=== PATIENT | female | born 1960 | race Asian ===

== ENCOUNTER 2021-02-18 12:14 | Inpatient (IN) | payer MEDICAID ==
[~2021-02-18] VITALS: Ht 152.4 cm; Wt 58.0 kg
[2021-02-18 13:53] LABS: EOSINOPHILS % (AUTO) 0 % (0-6); HEMOGLOBIN 15.3 g/dl (12.0-16.0); LYMPHOCYTES # (AUTO) 1.4 X10'3 (1.1-4.8); MONOCYTES # (AUTO) 0.2 X10'3 (0-0.9); NEUTROPHILS # (AUTO) 8.9 X10'3 (1.8-7.7); WHITE BLOOD COUNT 10.5 X10'3 (4.5-11.0)
[2021-02-18 13:54] LABS: BASOPHILS % (AUTO) 0.3 % (0-1); HEMATOCRIT 46.2 % (35.0-45.0); LYMPHOCYTES % (AUTO) 13.3 % (21-51); MEAN CORPUSCULAR HEMOGLOBIN 27.2 PG (27.0-31.0); MEAN CORPUSCULAR HGB CONC 33.2 g/dL (33.0-36.5); MEAN CORPUSCULAR VOLUME 81.7 FL (78-98); MEAN PLATELET VOLUME 8.2 FL (7.4-10.4); MONOCYTES % (AUTO) 1.8 % (2-12); NEUTROPHILS % (AUTO) 84.6 % (42-75); PLATELET COUNT 309 X10'3 (140-440); RED BLOOD COUNT 5.65 X10'6 (4.20-5.60)
[2021-02-18] MEDS ORDERED: LISI1TAB32 PO (14:28)
[2021-02-18 14:41] LABS: ALBUMIN 4.2 G/DL (3.4-5.0); ANION GAP 17 (8-16); BLOOD UREA NITROGEN 15 MG/DL (7-18); BUN/CREATININE RATIO 23.8 (6.6-38.0); CALCIUM 9.7 MG/DL (8.5-10.1); CHLORIDE 99 MMOL/L (99-107); CREATININE 0.63 MG/DL (0.40-0.90); GLUCOSE 204 MG/DL (70-104); SODIUM 138 MMOL/L (135-145); TOTAL CARBON DIOXIDE 22.5 MMOL/L (24-32); eGFR > 90 ML/MIN
[2021-02-18 14:42] LABS: POTASSIUM 4.2 MMOL/L (3.5-5.1)
[2021-02-18] MEDS ORDERED: iohexol 300mg/ml 100ml inj. ONE (14:55)
--- NOTE | 2021-02-18 15:00 | NUR ---
TO CT VIA [facility]
[2021-02-18] MEDS ORDERED: NO HOME MEDS (16:02)
[2021-02-18] MEDS ORDERED: labetalol 20mg/4ml (5mg/ml) syringe IV ONE ×2 (16:05→17:40)
[2021-02-18] MEDS ORDERED: amLODIPine 5mg tablet PO ONE (16:05)
[2021-02-18] MEDS ORDERED: normal saline 1000ML IV soln IVB ONE (16:05)
--- NOTE | 2021-02-18 16:15 | NUR ---
YASIR WALLACE [phone] CALL WHEN DC
--- NOTE | 2021-02-18 17:42 | NUR ---
to gi lab
[2021-02-18 17:50] VITALS: BP 230/114
[2021-02-18] MEDS ORDERED: MIDAZolam 1 MG/ML 5ML VIAL ONE (17:50)
[2021-02-18] MEDS ORDERED: LIDOcaine Viscous 15ml cup ONE (17:50)
[2021-02-18] MEDS ORDERED: fentaNYL/PF 50MCG/1 ML 2ML syringe ONE (17:50)
[2021-02-18 18:30] VITALS: BP 157/90
[2021-02-18 18:40] VITALS: BP 156/81
[2021-02-18 18:50] VITALS: BP 162/80
[2021-02-18 19:00] VITALS: BP 152/84
[2021-02-18] MEDS ORDERED: diphenhydrAMINE 50 mg/ml inj IV ONE (20:00)
[2021-02-18] MEDS ORDERED: temazepam 15mg capsule PO PRN (21:00)
[2021-02-18] MEDS ORDERED: mag hydrox/Alum hydrox/simeth 30ml oral suspension PO PRN (23:30)
[2021-02-18] MEDS ORDERED: ondansetron/PF 4mg/2ml inj IV PRN (23:30)
[2021-02-18] MEDS ORDERED: diphenhydrAMINE 50 mg/ml inj IV PRN (23:30)
[2021-02-18] MEDS ORDERED: acetaminophen 650mg rectal suppository RC PRN (23:30)
[2021-02-18] MEDS ORDERED: ondansetron 4mg rapidly disintigrating tab PO PRN (23:30)
[2021-02-18] MEDS ORDERED: diphenhydrAMINE 25mg capsule PO PRN (23:30)
[2021-02-18] MEDS ORDERED: magnesium hydroxide 30ml (MOM) UD suspension PO PRN (23:30)
[2021-02-18] MEDS ORDERED: acetaminophen 325mg tablet PO PRN ×2 (23:30)
[2021-02-18] MEDS ORDERED: dextrose 5%-1/2 normal saline 1,000 ML IV SCH (23:30)
[2021-02-18] MEDS ORDERED: morphine 2 MG/ML inj. syringe IV PRN ×2 (23:30)
[2021-02-18] MEDS ORDERED: HYDROcodone/acetaminophen 5mg/325mg tablet PO PRN (23:30)
[2021-02-18] MEDS ORDERED: bisacodyl 10mg suppository rectal RC PRN (23:30)
[2021-02-19 00:02] LABS: HEMOGLOBIN A1C 8.2 % (4.5-6.2)
[2021-02-19 00:18] LABS: LIPASE 63 U/L (73-393); MAGNESIUM 2.1 MG/DL (1.5-2.4); PHOSPHORUS 4.1 MG/DL (2.3-4.5)
[2021-02-19] MEDS: hydrALAZINE 20mg/ml inj. IV PRN ×2 (03:10→10:05)
[2021-02-19 03:37] LABS: BASOPHILS % (AUTO) 0.2 % (0-1); EOSINOPHILS # (AUTO) 0.1 X10'3 (0-0.9); EOSINOPHILS % (AUTO) 0.9 % (0-6); HEMOGLOBIN 14.1 g/dl (12.0-16.0); LYMPHOCYTES # (AUTO) 2.8 X10'3 (1.1-4.8); LYMPHOCYTES % (AUTO) 29.7 % (21-51); MEAN CORPUSCULAR HEMOGLOBIN 26.9 PG (27.0-31.0); MEAN CORPUSCULAR HGB CONC 33.6 g/dL (33.0-36.5); MEAN CORPUSCULAR VOLUME 80.1 FL (78-98); MEAN PLATELET VOLUME 7.8 FL (7.4-10.4); MONOCYTES # (AUTO) 0.6 X10'3 (0-0.9); MONOCYTES % (AUTO) 6.8 % (2-12); NEUTROPHILS # (AUTO) 5.9 X10'3 (1.8-7.7); NEUTROPHILS % (AUTO) 62.4 % (42-75); PLATELET COUNT 275 X10'3 (140-440); RED BLOOD COUNT 5.24 X10'6 (4.20-5.60); RED CELL DISTRIBUTION WIDTH 13.7 % (11.5-14.5); WHITE BLOOD COUNT 9.5 X10'3 (4.5-11.0)
[2021-02-19 03:51] LABS: PARTIAL THROMBOPLASTIN TIME 24 SECONDS (22-32)
[2021-02-19 03:59] LABS: ALANINE AMINOTRANSFERASE 31 U/L (12-78); ALBUMIN 3.6 G/DL (3.4-5.0); ALBUMIN/GLOBULIN RATIO 0.9 (1.1-1.5); ALKALINE PHOSPHATASE 136 IU/L (46-116); ANION GAP 8 (8-16); ASPARTATE AMINO TRANSFERASE 16 U/L (10-37); BILIRUBIN,TOTAL 0.3 MG/DL (0.1-1.0); BLOOD UREA NITROGEN 14 MG/DL (7-18); BUN/CREATININE RATIO 18.4 (6.6-38.0); CALCIUM 8.7 MG/DL (8.5-10.1); CHLORIDE 108 MMOL/L (99-107); CHOL/HDL RATIO 4.3 (0.00-4.99); CHOLESTEROL 341 MG/DL (0-200); CREATININE 0.76 MG/DL (0.40-0.90); GLUCOSE 181 MG/DL (70-104); HDL CHOLESTEROL 79 MG/DL (35-60); LDL CHOLESTEROL 212 MG/DL (50-100); POTASSIUM 3.4 MMOL/L (3.5-5.1); SODIUM 144 MMOL/L (135-145); TOTAL CARBON DIOXIDE 27.9 MMOL/L (24-32); TOTAL PROTEIN 7.7 G/DL (6.4-8.2); TRIGLYCERIDES 180 MG/DL (20-135); eGFR 78 ML/MIN
[2021-02-19] MEDS ORDERED: niCARdipine I.V. 50 MG in normal saline 250ml IV soln 230 ML IV SCH (04:25)
[2021-02-19] MEDS: niCARDipine-NS 40mg/200ml IVPB 200 ML IV SCH ×2 (04:31→12:30)
[2021-02-19] MEDS ORDERED: glucagon, human recombinant 1mg kit SUBCUT PRN (05:00)
[2021-02-19] MEDS ORDERED: insulin Lispro (HumaLOG) vial - multi-dose SQ SCH (05:00)
[2021-02-19] MEDS ORDERED: potassium Cl 20 mEq SR tablet PO PRN ×2 (05:00)
[2021-02-19] MEDS ORDERED: magnesium Cl slow-release 64mg tablet PO PRN (05:00)
[2021-02-19] MEDS ORDERED: dextrose ORAL solution 15 GM/59 ML bottle PO PRN ×2 (05:00)
[2021-02-19] MEDS ORDERED: dextrose 50%-water 50ml dispensing syringe IV PRN ×2 (05:00)
[2021-02-19] MEDS ORDERED: magnesium 4gm in 100ml NS 100 ML IV PRN (05:00)
[2021-02-19] MEDS ORDERED: potassium Cl 40MEQ/1/2NS 520ml 520 ML IV PRN (05:00)
[2021-02-19] MEDS ORDERED: MESSAGE TO PHARMACY PO ONE (05:00)
--- NOTE | 2021-02-19 07:03 | NUR ---
PT AMBUATED TO BATHROOM NO ASSISTANCE NEEDED, STEADY GAIT
[2021-02-19] MEDS ORDERED: pantoprazole 40mg Tablet.DR PO SCH (07:30)
--- NOTE | 2021-02-19 07:36 | NUR ---
pt refused to swallow pills.
[2021-02-19] MEDS: K and/or MAG REPLACEMENT MC SCH ×2 (08:00→19:57)
[2021-02-19] MEDS ORDERED: atorvastatin 20mg tablet PO SCH (08:00)
[2021-02-19] MEDS ORDERED: docusate sod 100mg capsule PO SCH (08:00)
[2021-02-19] MEDS ORDERED: amox tr/potassium clavulanate 500mg/125mg TAB PO SCH (08:30)
--- NOTE | 2021-02-19 08:43 | NUR ---
pt able to swallow some broth without distress.
--- NOTE | 2021-02-19 09:59 | NUR ---
BACK FROM MRI
[2021-02-19] MEDS: heparin, porcine 5000 units/ml vial SQ SCH ×2 (10:06→19:57)
[2021-02-19] MEDS: aspirin 300mg supp.rect RC SCH (12:29)
--- NOTE | 2021-02-19 14:02 | NUR ---
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 TF recs below given pt needs using IBW as pending scaled wt this admit; will monitor for TF adjustment needs once scaled wt this admit. Noted A1C 8.2 w/ Glu 287mg/dl and no hx DM; UTE d/w RN who reports new DM DX this admit as well pt not previously aware. Lipid panel elevated TG 180, Chol 341, LDL 212 on admit as well. Pt would benefit from HH/DM eds once provided official DM DX by DO and if diet to advance past TF for sole nutrition. Noted pt w/ humlaog in EMR but no long-acting Glu coverage; UTE d/w RN regarding long-acting coverage if DO agreeable. Will monitor for TF tolerance and adjustment needs this admit. Rec: 1. Continuous TF per MD using Glucerna 1.2 at 41ml/hr; to provide 984ml volume/day, 1181 kcals, 797ml free water, and 59g protein. 2. additional water flush 200ml Q4H; monitor for serum Na and adjustment needs 3. monitor for TF adjustment needs following scaled wt this admit 4. monitor for TF tolerance 5. PALB Q /; daily wts 6. routine bowel care 7. advance diet as medically indicated per PRESCHOOL ASSISTANT/DO recs to carb controlled/heart healthy 8. DM ed deferred until pt off nutrition support and more appropriate; would benefit from DM and HH diet eds following official DM DX by DO once on PO meals for sole nutrition Addendum: 02/19/21 at [address] Amended: Links added.
[2021-02-19] MEDS ORDERED: acetaminophen 325mg tablet CORPAK PRN ×2 (14:35)
[2021-02-19] MEDS ORDERED: dextrose ORAL solution 15 GM/59 ML bottle CORPAK PRN ×2 (14:36)
[2021-02-19] MEDS ORDERED: atorvastatin 20mg tablet CORPAK SCH (14:36)
[2021-02-19] MEDS ORDERED: ondansetron 4mg rapidly disintigrating tab CORPAK PRN (14:38)
[2021-02-19] MEDS ORDERED: POTASSIUM BICARB 20meq eff tab 20 MEQ TABLET.EFF CORPAK PRN ×2 (14:40)
[2021-02-19] MEDS ORDERED: POTASSIUM BICARB 20meq eff tab 20 MEQ TABLET.EFF PO PRN ×2 (14:40)
[2021-02-19] MEDS ORDERED: HYDROcodone/acetaminophen 7.5MG/325MG per 15ml UD CUP CORPAK PRN (14:45)
--- NOTE | 2021-02-19 16:54 | NUR ---
Sony - richard [phone]. Okay to give information.
--- NOTE | 2021-02-19 20:46 | NUR ---
REPORT GIVEN TO DEVIN CHARLTON ON ORTHO. REPORT ACCEPTED
[2021-02-19 21:10] VITALS: BP_SYST 201; BP_SYST 205; BP_DIAS 85; BP_DIAS 93
--- NOTE | 2021-02-19 23:40 | NUR ---
CORPAK PLACED INTO R NARE ORDERED FOR TUBE FDG D/T DYPHASIA R/T STROKE. KUB ORDERED FOR 0200 TO CHECK PLACEMENT OF CORPAK
[2021-02-20] MEDS: hydrALAZINE 20mg/ml inj. IV PRN (01:56)
--- NOTE | 2021-02-20 01:59 | NUR ---
HYDROLAZINE GIVEN ORDERED FOR B/P /. PATIENT DENIES ANY SAMANO OR SYMPTOMS WITH ELEVATED B/P.
--- NOTE | 2021-02-20 04:00 | NUR ---
RADIOLOGY HERE FOR ABDOMINAL XRAY. WILL HAVE PLACEMENT CHECKED AND BEGIN TUBEFEEDING ORDERED
--- NOTE | 2021-02-20 05:21 | NUR ---
NO SCD'S PLACED, PATIENT UP AD MARGARITA TO VOID AND REFUSED HAVING THEM PLACED ON HER.
--- NOTE | 2021-02-20 05:58 | NUR ---
KUB was done but not read yet, I asked the critical care charge nurse if she could confirm placement of Corpak but she is unable to do this at this time.
[2021-02-20 06:00] VITALS: BP 158/84
--- NOTE | 2021-02-20 06:30 | NUR ---
Patient in room ORTHO 4024. I have received report from LATESHA parker and had the opportunity to ask questions and assume patient care.
[2021-02-20 06:48] LABS: BASOPHILS % (AUTO) 0.2 % (0-1); EOSINOPHILS % (AUTO) 0.2 % (0-6); HEMATOCRIT 43.2 % (35.0-45.0); HEMOGLOBIN 14.4 g/dl (12.0-16.0); LYMPHOCYTES # (AUTO) 1.2 X10'3 (1.1-4.8); LYMPHOCYTES % (AUTO) 9.2 % (21-51); MEAN CORPUSCULAR HEMOGLOBIN 26.7 PG (27.0-31.0); MEAN CORPUSCULAR HGB CONC 33.2 g/dL (33.0-36.5); MEAN CORPUSCULAR VOLUME 80.3 FL (78-98); MEAN PLATELET VOLUME 8.7 FL (7.4-10.4); MONOCYTES # (AUTO) 0.7 X10'3 (0-0.9); MONOCYTES % (AUTO) 4.9 % (2-12); NEUTROPHILS # (AUTO) 11.4 X10'3 (1.8-7.7); NEUTROPHILS % (AUTO) 85.5 % (42-75); PLATELET COUNT 315 X10'3 (140-440); RED BLOOD COUNT 5.38 X10'6 (4.20-5.60); RED CELL DISTRIBUTION WIDTH 14.1 % (11.5-14.5); WHITE BLOOD COUNT 13.4 X10'3 (4.5-11.0)
[2021-02-20 07:15] LABS: ALANINE AMINOTRANSFERASE 27 U/L (12-78); ALBUMIN 3.7 G/DL (3.4-5.0); ALBUMIN/GLOBULIN RATIO 0.9 (1.1-1.5); ALKALINE PHOSPHATASE 144 IU/L (46-116); ANION GAP 15 (8-16); ASPARTATE AMINO TRANSFERASE 14 U/L (10-37); BILIRUBIN,TOTAL 0.4 MG/DL (0.1-1.0); BLOOD UREA NITROGEN 25 MG/DL (7-18); BUN/CREATININE RATIO 33.3 (6.6-38.0); CALCIUM 9.4 MG/DL (8.5-10.1); CHLORIDE 106 MMOL/L (99-107); CREATININE 0.75 MG/DL (0.40-0.90); GLUCOSE 233 MG/DL (70-104); SODIUM 142 MMOL/L (135-145); TOTAL CARBON DIOXIDE 20.9 MMOL/L (24-32); eGFR 79 ML/MIN
[2021-02-20] MEDS: insulin regular, human U-100 3ml vial - multi-dose SQ SCH (07:59)
[2021-02-20] MEDS: K and/or MAG REPLACEMENT MC SCH ×2 (08:00→20:00)
[2021-02-20] MEDS: pantoprazole 40 MG vial IV SCH (08:01)
[2021-02-20] MEDS: aspirin 300mg supp.rect RC SCH (08:14)
[2021-02-20] MEDS: heparin, porcine 5000 units/ml vial SQ SCH ×2 (08:14→20:00)
--- NOTE | 2021-02-20 09:24 | NUR ---
DM consult re: "new diagnosis of DM". Patient's A1c has already been addressed by RD. DM nutrition therapy education not appropriate at this time given pt currently receiving TF for sole source of nutrition r/t dysphagia. IF PO diet gets advanced pt would benefit from DM education, though pt needs official diagnosis by physician prior to RD being able to provide education. Will continue to follow. Addendum: 02/20/21 at [address] Amended: Links added.
[2021-02-20 10:00] VITALS: BP 138/79
[2021-02-20] MEDS: atorvastatin 20mg tablet CORPAK SCH (15:53)
[2021-02-20 18:00] VITALS: BP 95/81
--- NOTE | 2021-02-20 18:24 | NUR ---
Problems reprioritized. Patient report given,LATESHA parker questions answered & plan of care reviewed with .
--- NOTE | 2021-02-20 18:56 | NUR ---
Patient in room ORTHO 4024. I have received report from KAMRON CHARLTON and had the opportunity to ask questions and assume patient care.
[2021-02-20 22:00] VITALS: BP 174/80
[2021-02-21] MEDS: insulin regular, human U-100 3ml vial - multi-dose SQ SCH ×4 (02:24→21:04)
[2021-02-21 05:58] LABS: BASOPHILS % (AUTO) 0.4 % (0-1); EOSINOPHILS # (AUTO) 0.1 X10'3 (0-0.9); EOSINOPHILS % (AUTO) 0.6 % (0-6); HEMATOCRIT 43.8 % (35.0-45.0); HEMOGLOBIN 14.3 g/dl (12.0-16.0); MEAN CORPUSCULAR HEMOGLOBIN 26.7 PG (27.0-31.0); MEAN CORPUSCULAR HGB CONC 32.5 g/dL (33.0-36.5); MEAN PLATELET VOLUME 8.3 FL (7.4-10.4); MONOCYTES # (AUTO) 0.7 X10'3 (0-0.9); MONOCYTES % (AUTO) 7.1 % (2-12); NEUTROPHILS # (AUTO) 5.4 X10'3 (1.8-7.7); NEUTROPHILS % (AUTO) 58.9 % (42-75); PLATELET COUNT 332 X10'3 (140-440); RED BLOOD COUNT 5.35 X10'6 (4.20-5.60); RED CELL DISTRIBUTION WIDTH 14.4 % (11.5-14.5); WHITE BLOOD COUNT 9.2 X10'3 (4.5-11.0)
[2021-02-21 06:11] LABS: ALANINE AMINOTRANSFERASE 30 U/L (12-78); ALBUMIN 3.5 G/DL (3.4-5.0); ALBUMIN/GLOBULIN RATIO 0.8 (1.1-1.5); ALKALINE PHOSPHATASE 134 IU/L (46-116); ANION GAP 14 (8-16); ASPARTATE AMINO TRANSFERASE 19 U/L (10-37); BILIRUBIN,TOTAL 0.4 MG/DL (0.1-1.0); BLOOD UREA NITROGEN 43 MG/DL (7-18); BUN/CREATININE RATIO 45.7 (6.6-38.0); CALCIUM 9.6 MG/DL (8.5-10.1); CHLORIDE 107 MMOL/L (99-107); CREATININE 0.94 MG/DL (0.40-0.90); GLUCOSE 178 MG/DL (70-104); POTASSIUM 3.8 MMOL/L (3.5-5.1); SODIUM 144 MMOL/L (135-145); TOTAL CARBON DIOXIDE 23.3 MMOL/L (24-32); eGFR 61 ML/MIN
[2021-02-21 06:30] VITALS: BP 156/83
--- NOTE | 2021-02-21 06:44 | NUR ---
Problems reprioritized. Patient report given, questions answered & plan of care reviewed with JOSH CHARLTON.
[2021-02-21] MEDS: K and/or MAG REPLACEMENT MC SCH ×2 (08:00→20:00)
[2021-02-21] MEDS: pantoprazole 40 MG vial IV SCH (08:37)
[2021-02-21] MEDS: aspirin 81mg tab.chew CORPAK SCH (08:37)
[2021-02-21] MEDS: heparin, porcine 5000 units/ml vial SQ SCH ×2 (08:37→21:16)
[2021-02-21] MEDS: atorvastatin 20mg tablet CORPAK SCH (08:37)
[2021-02-21 10:00] VITALS: BP 118/67
[2021-02-21] MEDS: lisinopril 20mg tablet CORPAK SCH (10:18)
--- NOTE | 2021-02-21 17:27 | NUR ---
PAGED DR CARUSO RE: PAGER ID: [phone] MESSAGE: DOM. JOSE CRUZ NO ESOPHAGRAM, NO RADIOLOGIST RESPONDING. SO I WAS TOLD PROB NOT UNTIL . O/N JOSH [id number] STATES HE IS AWARE VIA PHONE CALL BACK
[2021-02-21 18:00] VITALS: BP 159/79
--- NOTE | 2021-02-21 18:52 | NUR ---
Patient in room ORTHO 4024. I have received report from LATESHA MORENO and had the opportunity to ask questions and assume patient care.
[2021-02-21 22:00] VITALS: BP 148/88
[2021-02-22] MEDS: insulin regular, human U-100 3ml vial - multi-dose SQ SCH ×2 (02:17→09:44)
[2021-02-22 02:40] VITALS: BP 131/94
--- NOTE | 2021-02-22 06:06 | NUR ---
Problems reprioritized. Patient report given, questions answered & plan of care reviewed with LATESHA MORENO.
[2021-02-22 06:14] LABS: BASOPHILS % (AUTO) 0.6 % (0-1); EOSINOPHILS # (AUTO) 0.3 X10'3 (0-0.9); EOSINOPHILS % (AUTO) 3.4 % (0-6); HEMATOCRIT 44.4 % (35.0-45.0); HEMOGLOBIN 14.4 g/dl (12.0-16.0); LYMPHOCYTES # (AUTO) 3.1 X10'3 (1.1-4.8); LYMPHOCYTES % (AUTO) 35.6 % (21-51); MEAN CORPUSCULAR HEMOGLOBIN 26.7 PG (27.0-31.0); MEAN CORPUSCULAR HGB CONC 32.4 g/dL (33.0-36.5); MEAN CORPUSCULAR VOLUME 82.5 FL (78-98); MEAN PLATELET VOLUME 8.8 FL (7.4-10.4); MONOCYTES # (AUTO) 0.6 X10'3 (0-0.9); MONOCYTES % (AUTO) 6.6 % (2-12); NEUTROPHILS # (AUTO) 4.7 X10'3 (1.8-7.7); NEUTROPHILS % (AUTO) 53.8 % (42-75); PLATELET COUNT 315 X10'3 (140-440); RED BLOOD COUNT 5.39 X10'6 (4.20-5.60); RED CELL DISTRIBUTION WIDTH 14.4 % (11.5-14.5); WHITE BLOOD COUNT 8.7 X10'3 (4.5-11.0)
--- NOTE | 2021-02-22 06:22 | NUR ---
Patient in room ORTHO 4024. I have received report from basilia shi and had the opportunity to ask questions and assume patient care.
[2021-02-22 06:25] LABS: ALANINE AMINOTRANSFERASE 40 U/L (12-78); ALBUMIN 3.4 G/DL (3.4-5.0); ALBUMIN/GLOBULIN RATIO 0.8 (1.1-1.5); ALKALINE PHOSPHATASE 137 IU/L (46-116); ANION GAP 14 (8-16); ASPARTATE AMINO TRANSFERASE 34 U/L (10-37); BILIRUBIN,TOTAL 0.2 MG/DL (0.1-1.0); BLOOD UREA NITROGEN 41 MG/DL (7-18); BUN/CREATININE RATIO 53.9 (6.6-38.0); CALCIUM 9.4 MG/DL (8.5-10.1); CHLORIDE 108 MMOL/L (99-107); CREATININE 0.76 MG/DL (0.40-0.90); GLUCOSE 149 MG/DL (70-104); POTASSIUM 3.5 MMOL/L (3.5-5.1); PREALBUMIN 24.1 MG/DL (19-36); SODIUM 145 MMOL/L (135-145); TOTAL CARBON DIOXIDE 22.8 MMOL/L (24-32); TOTAL PROTEIN 7.9 G/DL (6.4-8.2); eGFR 77 ML/MIN
[2021-02-22 06:29] VITALS: BP 123/83
[2021-02-22] MEDS: K and/or MAG REPLACEMENT MC SCH ×2 (06:58→20:00)
[2021-02-22] MEDS: aspirin 81mg tab.chew CORPAK SCH ×2 (07:36→08:30)
[2021-02-22] MEDS: lansoprazole 15mg solutab CORPAK SCH ×2 (07:36→08:00)
[2021-02-22] MEDS: atorvastatin 20mg tablet CORPAK SCH ×2 (07:37→08:00)
[2021-02-22] MEDS: lisinopril 20mg tablet CORPAK SCH ×2 (07:37→08:00)
[2021-02-22] MEDS: heparin, porcine 5000 units/ml vial SQ SCH ×2 (07:37→20:10)
[2021-02-22 10:00] VITALS: BP 172/93
--- NOTE | 2021-02-22 10:40 | NUR ---
Reassessment: TF continues to run at goal of Glucerna 1.2 at 41ml/hr w/ GRV WNL. New documented scaled wt, will modify TF to better meet pt's energy and protein needs, recs below. Noted pt has had multiple blood glucose greater than 200, pt w/ humalog in EMR but no long-acting Glu coverage; RD d/w RN regarding long-acting coverage if DO agreeable. Pt may benefit from PEG if they continue to have impaired swallowing ability. DM nutrition therapy education not appropriate at this time given pt currently receiving TF for sole source of nutrition r/t dysphagia. IF PO diet gets advanced pt would benefit from DM education, though pt needs official diagnosis by physician prior to RD being able to provide education. Will continue to monitor. Rec: 1. Continuous TF per MD using Jevity 1.2 at 55ml/hr; to provide 1320ml volume/day, 1584 kcals, 1069ml free water, and 72g protein. 2. additional water flush 200ml Q4H; monitor for serum Na and adjustment needs 3. monitor for TF tolerance 4. PALB Q /; daily wts 5. routine bowel care 6. advance diet as medically indicated per LOCKSTITCH LINING MAKER/DO recs to carb controlled/heart healthy 7. DM ed deferred until pt off nutrition support and more appropriate; would benefit from DM and HH diet eds following official DM DX by DO once on PO meals for sole nutrition Addendum: 02/22/21 at [address] Amended: Links added.
[2021-02-22] MEDS ORDERED: acetaminophen 325mg/10.15ml oral unit dose solution CORPAK PRN ×2 (11:20→11:21)
--- NOTE | 2021-02-22 13:46 | NUR ---
PAGED DR REYES RE: PAGER ID: [phone] MESSAGE: DOM. W[place] BILLINGSLEY NO LONGER WORKING PROPERLY. AND WILL NOT FLUSH. WOULD YOU LIKE ME TO PLACE NEW ONE? JOSH [id number] WILL WAIT FOR CALLBACK
--- NOTE | 2021-02-22 15:00 | NUR ---
CORPAK WILL NO LONGER FLUSH, OR RUN TUBE FEED. NOTIFIED MD AND GOT ORDER TO PLACE NEW ONE. CORPAK WAS DC AND A NEW ONE PLACED. XRAY TO VERIFY PLACEMENT SHOWS TIP IN FUNDUS. WILL ALLOW TIME FOR MIGRATION AND REPEAT XRAY.
[2021-02-22] MEDS: aspirin 300mg supp.rect RC SCH (15:56)
[2021-02-22 18:00] VITALS: BP 166/95
--- NOTE | 2021-02-22 18:27 | NUR ---
Problems reprioritized. Patient report given, questions answered & plan of care reviewed with basilia shi.
[2021-02-22 22:00] VITALS: BP 141/77
--- NOTE | 2021-02-22 22:19 | NUR ---
mary ann Galloway called to let me know she will be late for KUB after corpak placement.
--- NOTE | 2021-02-23 04:23 | NUR ---
FLORENCIO not read by MD yet. message radiology.
--- NOTE | 2021-02-23 04:45 | NUR ---
radiology called to inform that KUB is not going to read until morning.
--- NOTE | 2021-02-23 06:39 | NUR ---
Problems reprioritized. Patient report given, questions answered & plan of care reviewed with LATESHA NORMAN.
[2021-02-23 07:14] LABS: BASOPHILS % (AUTO) 0.3 % (0-1); EOSINOPHILS # (AUTO) 0.2 X10'3 (0-0.9); EOSINOPHILS % (AUTO) 2.7 % (0-6); HEMATOCRIT 46.4 % (35.0-45.0); HEMOGLOBIN 15.1 g/dl (12.0-16.0); LYMPHOCYTES # (AUTO) 3.4 X10'3 (1.1-4.8); LYMPHOCYTES % (AUTO) 37.1 % (21-51); MEAN CORPUSCULAR HEMOGLOBIN 27.1 PG (27.0-31.0); MEAN CORPUSCULAR HGB CONC 32.5 g/dL (33.0-36.5); MEAN CORPUSCULAR VOLUME 83.2 FL (78-98); MEAN PLATELET VOLUME 8.3 FL (7.4-10.4); MONOCYTES # (AUTO) 0.6 X10'3 (0-0.9); MONOCYTES % (AUTO) 6.7 % (2-12); NEUTROPHILS # (AUTO) 4.8 X10'3 (1.8-7.7); NEUTROPHILS % (AUTO) 53.2 % (42-75); PLATELET COUNT 325 X10'3 (140-440); RED BLOOD COUNT 5.57 X10'6 (4.20-5.60); RED CELL DISTRIBUTION WIDTH 14.2 % (11.5-14.5); WHITE BLOOD COUNT 9.1 X10'3 (4.5-11.0)
[2021-02-23 07:40] LABS: ALANINE AMINOTRANSFERASE 33 U/L (12-78); ALBUMIN 3.8 G/DL (3.4-5.0); ALBUMIN/GLOBULIN RATIO 0.8 (1.1-1.5); ALKALINE PHOSPHATASE 149 IU/L (46-116); ANION GAP 15 (8-16); ASPARTATE AMINO TRANSFERASE 24 U/L (10-37); BILIRUBIN,TOTAL 0.5 MG/DL (0.1-1.0); BLOOD UREA NITROGEN 35 MG/DL (7-18); BUN/CREATININE RATIO 41.7 (6.6-38.0); CALCIUM 9.5 MG/DL (8.5-10.1); CHLORIDE 108 MMOL/L (99-107); CREATININE 0.84 MG/DL (0.40-0.90); GLUCOSE 131 MG/DL (70-104); POTASSIUM 4.2 MMOL/L (3.5-5.1); SODIUM 146 MMOL/L (135-145); TOTAL CARBON DIOXIDE 23.5 MMOL/L (24-32); TOTAL PROTEIN 8.6 G/DL (6.4-8.2); eGFR 69 ML/MIN
[2021-02-23 07:41] VITALS: BP 163/101
[2021-02-23] MEDS: K and/or MAG REPLACEMENT MC SCH ×2 (08:00→20:00)
[2021-02-23] MEDS: lansoprazole 15mg solutab CORPAK SCH (08:00)
[2021-02-23] MEDS ORDERED: aspirin 300mg supp.rect RC SCH (08:00)
[2021-02-23] MEDS: lisinopril 20mg tablet CORPAK SCH (08:00)
[2021-02-23] MEDS: atorvastatin 20mg tablet CORPAK SCH (08:00)
[2021-02-23] MEDS: aspirin 81mg tab.chew CORPAK SCH (08:30)
[2021-02-23] MEDS: heparin, porcine 5000 units/ml vial SQ SCH ×2 (09:31→19:58)
--- NOTE | 2021-02-23 09:34 | NUR ---
Luke from Radiology said that they could not do the esophagram today because of staffing issue. Addendum: 02/23/21 at 0942 by Dixon Salazar RN Dr. Lozada notified about this. He asked me to follow up with Lisandro Speech therapist to get the bedside swallow test done today. Sent a page message to the speech therapist regarding this request.
[2021-02-23 10:00] VITALS: BP 163/101
[2021-02-23] MEDS: aspirin 300mg supp.rect RC SCH (10:33)
--- NOTE | 2021-02-23 10:36 | NUR ---
Repaged Speech therapist Ortho/Neuro. Dixon CHARLTON RE: Dom. Zach Patient need bedside swallow evaluation emily please! Patient waiting and Dr. Lozada wants it done.
--- NOTE | 2021-02-23 12:22 | NUR ---
Paged Dr. Lozada PAGER ID: [phone] MESSAGE: Ortho/Neuro Dixon CHARLTON ext [phone]. RE: Kevin Gamez. Patient passed swallow eval. ST ordered pureed with thin liquid. Can I get order to d/c the corpak please
--- NOTE | 2021-02-23 12:51 | NUR ---
Paged Dr. Lozada PAGER ID: [phone] MESSAGE: Ortho/neuro Dixon CHARLTON ext [phone]. RE: Kevin Serrano. Can I get order to d/c mark. She passed the swallow test today. We will start pureed diet
[2021-02-23] MEDS ORDERED: LISI20TA28 PO (13:24)
[2021-02-23] MEDS ORDERED: OMEP40CA21 PO (13:24)
[2021-02-23] MEDS ORDERED: ATOR80TA PO (13:24)
[2021-02-23] MEDS ORDERED: ASPI81TA52 PO (13:24)
--- NOTE | 2021-02-23 13:28 | NUR ---
Discontinued Corpak, patient tolerated the procedure well.
[2021-02-23 18:00] VITALS: BP 170/86
--- NOTE | 2021-02-23 19:14 | NUR ---
Patient in room [facility]. I have received report from LATESHA Metcalf and had the opportunity to ask questions and assume patient care.
[2021-02-23] MEDS ORDERED: acetaminophen 325mg tablet PO PRN ×2 (20:23→20:24)
[2021-02-23] MEDS ORDERED: aspirin 81mg tab.chew PO SCH (20:25)
[2021-02-23] MEDS ORDERED: atorvastatin 20mg tablet PO SCH (20:26)
[2021-02-23] MEDS ORDERED: dextrose ORAL solution 15 GM/59 ML bottle PO PRN ×2 (20:26)
[2021-02-23] MEDS ORDERED: lansoprazole 15mg solutab PO SCH (20:27)
[2021-02-23] MEDS ORDERED: HYDROcodone/acetaminophen 7.5MG/325MG per 15ml UD CUP PO PRN (20:27)
[2021-02-23] MEDS ORDERED: lisinopril 20mg tablet PO SCH (20:28)
[2021-02-23] MEDS ORDERED: ondansetron 4mg rapidly disintigrating tab PO PRN (20:28)
--- NOTE | 2021-02-24 06:21 | NUR ---
Problems reprioritized. Patient report given, questions answered & plan of care reviewed with LATESHA Patrick.
--- NOTE | 2021-02-24 06:43 | NUR ---
Patient in room [facility] 360. I have received report from LATESHA Quintana and had the opportunity to ask questions and assume patient care.
[2021-02-24 07:00] VITALS: BP 131/81
[2021-02-24] MEDS: aspirin 300mg supp.rect RC SCH (08:00)
[2021-02-24] MEDS: K and/or MAG REPLACEMENT MC SCH (08:00)
[2021-02-24 08:56] VITALS: BP_SYST 131
[2021-02-24] MEDS: heparin, porcine 5000 units/ml vial SQ SCH (08:57)
[2021-02-24] MEDS ORDERED: GLYB2.5T4 PO (09:21)
--- NOTE | 2021-02-24 11:43 | NUR ---
DM consult: Per RN pt has been provided with a DM dx by physician. Noted pt s/p BSS with ST recs pureed food with thin liquids. Pt documented with 75% PO intake of first two meals and Corpak has been removed. Patient and daughter seen at bedside for written and verbal DM education. RD discussed foods that contain carbohydrates, portion sizes, reading the nutrition facts label, consistent carb intake in moderation, the role of exercise, managing low and high blood sugar, and managing diabetes when sick. RD encouraged pt to f/u with physician regarding further DM management. Pt also provided with pureed nutrition therapy education and encouraged pt to reach out to physician/ST regarding food texture advancement. All questions were answered at this time. RD contact information provided and pt/daughter encouraged to reach out for further questions. Will remain available. Rec: 1. Continue pureed food with thin liquids per ST recs 2. Bowel care PRN 3. Scaled weights per rx Addendum: 02/24/21 at [address] Amended: Links added.
== END 2021-02-24 13:30 | disposition home or self-care (01) | DRG 45 ==
LOC: ER 12:14 → ED HOLD 23:31 → ORTHO 4S 02-19 21:10 → SUR 3N 02-23 13:45
PROVIDERS: ADMIT Family Medicine; ATTEND Family Medicine
PROC: 0DB58ZX Excision of Esophagus, Via Natural or Artificial Opening Endoscopic, Diagnostic (ICD-10-PCS; principal; 2021-02-18)
PROC: 0DB68ZX Excision of Stomach, Via Natural or Artificial Opening Endoscopic, Diagnostic (ICD-10-PCS; 2021-02-18)
PROC: BW2F1ZZ Computerized Tomography (CT Scan) of Neck using Low Osmolar Contrast (ICD-10-PCS; 2021-02-18)
DX: I63.9 Cerebral infarction, unspecified (principal); E86.0 Dehydration; E05.90 Thyrotoxicosis, unspecified without thyrotoxic crisis or storm; E11.9 Type 2 diabetes mellitus without complications; E78.5 Hyperlipidemia, unspecified; D72.829 Elevated white blood cell count, unspecified; E87.6 Hypokalemia; I10 Essential (primary) hypertension; I16.1 Hypertensive emergency; K29.70 Gastritis, unspecified, without bleeding; R59.1 Generalized enlarged lymph nodes
CPT/HCPCS: 36415; 43239; 70450; 70491; 70551; 74018; 80048; 80053; 80061; 82948; 83036; 83690; 83735; 83880; 84100; 84134; 84439; 84443; 84480; 85025; 85610; 85730; 87081; 92508; 92616; 93005; 93306; 96361; 96374; 96375; 97116; 97161; 97530; 99152; 99285; A4620; C9113; G0378; J0360; J1200; J1644; J1815; J2250; J2270; J3010; J3480; J3490; J7030; J7040; Q9967